=== PATIENT | female | born 1950 | race Caucasian/White ===

== ENCOUNTER 2023-02-02 09:47 | Day surgery (SDC) | payer MEDICARE, BC ==
[~2023-02-02 09:47] MED LIST: Propofol 200 MG/20 ML SDV ONE
[2023-02-02] MEDS ORDERED: Lactated Ringers 1,000 ML IV SCH (10:00)
[2023-02-02] MEDS ORDERED: Sodium Chloride 0.9% 10 ML Syringe FLUSH PRN (10:00)
[2023-02-02] MEDS ORDERED: Propofol 200 MG/20 ML SDV ONE (11:33)
== END 2023-02-02 12:17 | disposition home or self-care (01) ==
LOC: LL.SDS 09:47
PROVIDERS: ATTEND Surgery
DX: Z12.11 Encounter for screening for malignant neoplasm of colon (principal); E66.01 Morbid (severe) obesity due to excess calories; I10 Essential (primary) hypertension; K21.9 Gastro-esophageal reflux disease without esophagitis; J45.20 Mild intermittent asthma, uncomplicated; R73.03 Prediabetes; Z79.899 Other long term (current) drug therapy; Z88.5 Allergy status to narcotic agent; Z68.41 Body mass index [BMI] 40.0-44.9, adult
CPT/HCPCS: J2704; J7120